=== PATIENT | female | born 1970 | race African-American/Black ===

== ENCOUNTER 2018-07-24 14:33 | Emergency (ER) | payer OTHER ==
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
[2018-07-24 16:39] LABS: Basophils % (Auto) 0.4 % (0.0-1.8); Eosinophils # (Auto) 0.1 K/mm3 (0.0-0.4); Eosinophils % (Auto) 2.2 % (0.0-4.3); Hematocrit 27.4 % (30.3-42.9); Hemoglobin 9.1 gm/dl (10.1-14.3); Lymphocytes # (Auto) 0.5 K/mm3 (1.2-5.4); Lymphocytes % (Auto) 11.9 % (13.4-35.0); Mean Corpuscular HGB Conc 33 % (30-34); Mean Corpuscular Volume 88 fl (79-97); Monocytes # (Auto) 0.3 K/mm3 (0.0-0.8); Monocytes % (Auto) 8.6 % (0.0-7.3); Platelet Count 186 K/mm3 (140-440); Red Cell Distribution Width 13.1 % (13.2-15.2)
[2018-07-24 17:08] LABS: Albumin 3.6 g/dL (3.9-5); Calcium 8.6 mg/dL (8.4-10.2)
[2018-07-24] MEDS ORDERED: NACL 0.9% 1000 ML 1,000 ML IV ONE (20:28)
[2018-07-24 20:53] VITALS: BP 183/88
[2018-07-24 21:34] LABS: Bacteria,Urine 3+ /HPF (Negative); Bilirubin,Urine NEG (Negative); Blood,Urine NEG (Negative); Color,Urine Straw (Yellow); Granular Casts,Urine 1 /LPF; Mucus,Urine FEW /HPF; Urobilinogen,Urine < 2.0 mg/dL (<2.0)
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
[2018-07-24 21:38] LABS: Protein,Urine >500 mg/dL (Negative)
--- NOTE | 2018-07-24 22:48 | XRay Report ---
PROCEDURE: XR CHEST ROUTINE 2V TECHNIQUE: PA and lateral chest radiographs were obtained. HISTORY: cough COMPARISONS: None. FINDINGS: Heart: Normal. Mediastinum/Vessels: Normal. Lungs/Pleural space: Lungs are expanded and clear. There are no infiltrates, effusions or pneumothor aces.. Bony thorax: No acute osseous abnormality. IMPRESSION: Normal heart and lungs.. This document is electronically signed by Leo Hooper MD., July 24 2018 10:46:28 PM ET
== END 2018-07-25 00:10 | disposition home or self-care (01) ==
LOC: ED 14:33
DX: I12.9 Hypertensive chronic kidney disease with stage 1 through stage 4 chronic kidney disease, or unspecified chronic kidney disease (principal); E11.22 Type 2 diabetes mellitus with diabetic chronic kidney disease; N18.3 Chronic kidney disease, stage 3 (moderate); E11.65 Type 2 diabetes mellitus with hyperglycemia; Z79.4 Long term (current) use of insulin; Z90.49 Acquired absence of other specified parts of digestive tract; Z88.5 Allergy status to narcotic agent
CPT/HCPCS: 36415; 71046; 80053; 81001; 82010; 82805; 82962; 85025; 99284; J7030